=== PATIENT | male | born 1990 | race Caucasian/White ===

== ENCOUNTER 2018-02-02 21:13 | Emergency (ER) | payer BC ==
[2018-02-02 21:42] VITALS: BP 112/66; PULSE 114; RESP 17; TEMP 98
[2018-02-02] MEDS ORDERED: SODIUM CHLORIDE 0.9% 500 ML IV STA (22:06)
[2018-02-02] MEDS ORDERED: SODIUM CHLORIDE 0.9% 1,000 ML IV STA ×2 (22:06→22:07)
[2018-02-02] MEDS ORDERED: MORPHINE SULFATE 2 MG/ML SYRINGE IVP STA ×2 (22:07→22:46)
[2018-02-02 22:15] LABS: Basophils # (A) 0.1 k/uL (0-0.2); Basophils % (A) 0 %; Eosinophils # (A) 0.2 k/uL (0-0.7); Eosinophils % (A) 1 %; HCT 48.4 % (39.0-53.0); HGB 16.6 gm/dL (13.0-17.5); Lymphocytes # (A) 1.7 k/uL (1.0-4.8); Lymphocytes % (A) 14 %; MCH 32.3 pg (25.0-35.0); MCHC 34.3 g/dL (31.0-37.0); MCV 94.2 fL (80.0-100.0); Mean Platelet Volume 7.1; Monocytes # (A) 0.5 k/uL (0-1.0); Monocytes % (A) 4 %; Neutrophils # (A) 9.9 k/uL (1.3-7.7); Neutrophils % (A) 80 %; Platelet Count 199 k/uL (150-450); RBC 5.13 m/uL (4.30-5.90); RDW 12.4 % (11.5-15.5); WBC 12.4 k/uL (3.8-10.6)
[2018-02-02 22:25] LABS: Albumin 4.7 g/dL (3.5-5.0); Amylase 63 U/L (30-110); Chloride 104 mmol/L (98-107); Glucose 118 mg/dL (74-99); INR 1.1 (<1.2); Partial Thromboplastin Time 24.3 sec (22.0-30.0); Prothrombin Time 10.5 sec (9.0-12.0); Total Protein 7.5 g/dL (6.3-8.2)
[2018-02-02 22:26] LABS: ALT 68 U/L (21-72); AST 41 U/L (17-59); Alcohol 104 mg/dL; Alkaline Phosphatase 71 U/L (38-126); Anion Gap 15 mmol/L; Blood Urea Nitrogen 17 mg/dL (9-20); Calcium 9.6 mg/dL (8.4-10.2); Carbon Dioxide 26 mmol/L (22-30); Lipase 136 U/L (23-300); Potassium 3.7 mmol/L (3.5-5.1); Sodium 145 mmol/L (137-145); Total Bilirubin 0.5 mg/dL (0.2-1.3)
[2018-02-02 22:35] LABS: Creatine Kinase 213 U/L (55-170)
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
[2018-02-02 22:45] LABS: Glucose,Whole Blood 99 mg/dL (75-99)
[2018-02-02 22:47] LABS: Creatine Kinase MB 1.1 ng/mL (0.0-2.4); Troponin I <0.012 ng/mL (0.000-0.034)
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
[2018-02-02 23:30] LABS: Appearance,Urine Clear (Clear); Bilirubin,Urine Negative (Negative); Blood,Urine Negative (Negative); Color,Urine Yellow; Glucose,Urine (UA) Negative (Negative); Ketones,Urine Negative (Negative); Leukocyte Esterase,Urine Negative (Negative); Nitrite,Urine Negative (Negative); PH, Urine 6.5 (5.0-8.0); Protein,Urine Trace (Negative); Urobilinogen,Urine <2.0 mg/dL (<2.0)
[2018-02-02 23:40] LABS: Amphetamine Screen,Urine Not Detected (NotDetected); Barbiturate Screen,Urine Not Detected (NotDetected); Benzodiazepines Screen,Urine Not Detected (NotDetected); Cocaine Screen,Urine Not Detected (NotDetected); Methadone Screen, Urine Not Detected (NotDetected); Opiate Screen,Urine Detected (NotDetected); Oxycodone Screen, Urine Not Detected (NotDetected); Phencyclidine Screen,Urine Not Detected (NotDetected); Tricyclic Antidepressant,Urine Not Detected (NotDetected); Urn Cannabinoid Scrn Detected (NotDetected)
--- NOTE | 2018-02-02 23:45 | XR ---
EXAMINATION TYPE: XR shoulder complete RT DATE OF EXAM: 02/02/2018 COMPARISON: NONE HISTORY: Shoulder pain TECHNIQUE: 3 views FINDINGS: I see no fracture nor dislocation. Joint spaces are normal. There are no pathologic calcifi cations. IMPRESSION: Negative right shoulder exam.
--- NOTE | 2018-02-02 23:45 | XR ---
EXAMINATION TYPE: XR wrist complete RT DATE OF EXAM: 02/02/2018 COMPARISON: NONE HISTORY: Wrist pain TECHNIQUE: 4 views FINDINGS: There is nondisplaced acute fracture of the ulnar styloid process. Carpal bones are intact. Joint spaces are normal. IMPRESSION: Acute fracture of the ulnar styloid process.
[2018-02-02 23:50] LABS: Specific Gravity,Urine 1.047 (1.001-1.035)
[2018-02-03] MEDS ORDERED: ONDANSETRON 4 MG/2 ML VIAL IVP STA (00:10)
== END 2018-02-03 00:10 | disposition home or self-care (01) ==
LOC: EC 21:13
DX: S52.601A Unspecified fracture of lower end of right ulna, initial encounter for closed fracture (principal); S09.90XA Unspecified injury of head, initial encounter; R00.0 Tachycardia, unspecified; G40.909 Epilepsy, unspecified, not intractable, without status epilepticus; F17.200 Nicotine dependence, unspecified, uncomplicated; Z79.899 Other long term (current) drug therapy; V86.56XA Driver of dirt bike or motor/cross bike injured in nontraffic accident, initial encounter; Y93.I9 Activity, other involving external motion; Y92.410 Unspecified street and highway as the place of occurrence of the external cause
CPT/HCPCS: 99285; 29125; 96374; 96375; 96376; 36415; 93005; 86900; 86901; 80053; 82150; 82550; 82553; 83605; 83690; 84484; 85025; 85610; 85730; 86850; 81003; 80306; 80320; 72170; 73030; 73110; 71045; 72125; 70450; 71260; 74177; J2405; J2270; Q9967

== ENCOUNTER 2022-06-08 16:06 | Emergency (ER) | payer BC, OTHER ==
[2022-06-08 16:53] VITALS: BP 134/96; PULSE 80; RESP 20; TEMP 98.5
--- NOTE | 2022-06-08 17:20 | XR ---
EXAMINATION TYPE: XR knee complete LT DATE OF EXAM: 06/08/2022 COMPARISON: NONE HISTORY: Pain TECHNIQUE: 3 views FINDINGS: There is no fracture nor dislocation. Knee joint spaces are normal. No pathologic calcifica tion. IMPRESSION: Negative left knee exam.
[2022-06-08] MEDS ORDERED: KETOROLAC 15 MG/ML 1 ML VIAL IM STA (18:12)
--- NOTE | 2022-06-08 18:12 | ED ---
Lower Extremity Injury HPI - General Chief Complaint: Extremity Injury, Lower Stated Complaint: knee injury Time Seen by Provider: 06/08/22 16:55 Source: patient Mode of arrival: ambulatory Limitations: no limitations - History of Present Illness Initial Comments: Patient is a 32-year-old male presenting with chief complaint Left knee pain. Patient states that he fell at work yesterday injuring the knee. No head injury or loss of consciousness, no blood thinners. He states that immediately following there was not much pain. He states that today when he woke up there was increasing pain. He is having difficulty with weightbearing and ambulation. No numbness or tingling. No pain in the lower leg. No discoloration. No weakness. No chest pain or difficulty breathing or palpitations. - Related Data Home Medications Medication Instructions Recorded Confirmed carBAMazepine [TEGretol] 100 mg PO TID 06/21/16 06/21/16 Previous Rx's Medication Instructions Recorded Azithromycin [Zithromax Z-pack (6 250 mg PO DAILY #4 tab 06/21/16 tabs)] Metoclopramide HCl [Reglan] 5 mg PO Q8HR PRN #10 tablet 06/21/16 Allergies Allergy/AdvReac Type Severity Reaction Status Date / Time No Known Allergies Allergy Verified 06/08/22 16:53 Review of Systems ROS Statement: Those systems with pertinent positive or pertinent negative responses have been documented in the HPI. ROS Other: All systems not noted in ROS Statement are negative. Past Medical History Past Medical History: Seizure Disorder History of Any Multi-Drug Resistant Organisms: None Reported Past Surgical History: Orthopedic Surgery Past Psychological History: No Psychological Hx Reported Smoking Status: Vaper Past Alcohol Use History: Occasional Past Drug Use History: Marijuana General Exam Limitations: no limitations General appearance: alert, in no apparent distress Head exam: Present: atraumatic, normocephalic, normal inspection Eye exam: Present: normal appearance Neck exam: Present: normal inspection Left Knee exam: Present: full ROM, tenderness, swelling Neurovascular tendon exam: Present: no vascular compromise. Absent: pulse deficit (Distal pulses 2+), motor deficit, sensory deficit Neurological exam: Present: alert, oriented X3, CN II-XII intact Psychiatric exam: Present: normal affect, normal mood Skin exam: Present: warm, dry, intact, normal color. Absent: rash Course Vital Signs 06/08/22 16:51 Temperature 98.5 F Pulse Rate 80 Respiratory 20 Rate Blood Pressure 134/96 O2 Sat by Pulse 96 Oximetry Medical Decision Making - Medical Decision Making Patient is a 32-year-old male presenting with chief complaint of left knee pain. Patient will injured it at work yesterday. He admits to tenderness, swelling, and pain with weightbearing and ambulation. Examination patient has full range of motion, there is some swelling noted and tenderness. No erythema or warmth. Patient has antalgic gait. X-ray shows no acute fracture or dislocation. Patient is placed in knee immobilizer and provided with crutches. Instructed to follow-up with orthopedics. Educated on supportive treatment. Follow-up with PCP. Report back to ER with any new or worsening symptoms. Discussed return parameters and answered all questions. Patient conveyed verbal understanding and agreed to the plan. I discussed this case in detail with my attending Dr. Maxwell Disposition Clinical Impression: Knee sprain Disposition: HOME SELF-CARE Condition: Good Instructions (If sedation given, give patient instructions): Knee Sprain (ED) Additional Instructions: Follow up with orthopedics. Report back to ER if any new or worsening symptoms. Take Motrin and Tylenol as needed for pain control. Rest, ice, compress, elevate the knee. Utilize knee immobilizer and crutches. Is patient prescribed a controlled substance at d/c from ED?: No Referrals: None,Stated [Primary Care Provider] - 1-2 days Garcia Cooley MD [STAFF PHYSICIAN] - 1-2 days Time of Disposition: 18:12
== END 2022-06-08 18:36 | disposition home or self-care (01) ==
LOC: EC 16:06
DX: S83.92XA Sprain of unspecified site of left knee, initial encounter (principal); F12.90 Cannabis use, unspecified, uncomplicated; W19.XXXA Unspecified fall, initial encounter
CPT/HCPCS: 73562; 99283; 96372; L1830; J1885